=== PATIENT | female | born 1950 | race Caucasian/White ===

== ENCOUNTER → 2018-12-12 | Day surgery (SDC) | payer OTHER ==
[~2018-12-12] MED LIST: ALBUTEROL SULFATE 2.5 MG/3 ML NEBU. NEB PRN; ASPI81TA50 PO; ATOR40TA59 PO; ATROPINE 0.5 MG/5 ML DISP.SYRIN. IV PRN; GLIP5TAB10 PO; IV RINGERS SOLUTION,LACTATED 1,000 ML IV SCH; LIDOCAINE 2% PF Vial for OR 5 ML VIAL. ONE; LOPE2CAP88 PO; METF10007 PO; NALOXONE 0.4 MG/ML VIAL. IV PRN; ONDANSETRON PF 4 MG/2 ML VIAL. IV PRN; OXYB5TAB7 PO; PROPOFOL 40 ML IV ONE; diphenhydrAMINE 50 MG/ML VIAL IV PRN
[2018-12-12 13:30] VITALS: BP 107/56
--- NOTE | 2018-12-16 14:07 | PATHOLOGY ---
[facility] Accession Number: [id number] . 01 Material submitted: . cecum - CECUM POLYP . 01 Clinical history: . Colonoscopy screening . 02 Diagnosis: Colon biopsy, cecal polyp: - Hyperplastic polyp, showing mild acute and chronic inflammation. (JPM:mita; 12/16/2018) QMS/12/16/2018 . 02 Comment: There are no adenomatous changes or evidence of malignancy. . (JPM:mita; 12/16/2018) . 02 Electronically signed: . Cristian Delacruz MD, Pathologist NPI- [id number] . 01 Gross description: . Received in formalin labeled "Scotty, Lore, cecum polyp," is a single segment of denson soft tissue measuring 0.3 cm in maximum dimension. The specimen is entirely submitted in cassette A1. (TSD; 12/15/2018) TOB/TOB . 02 Pathologist provided ICD-10: K63.5 . 02 CPT . 206308 Specimen Comment: A courtesy copy of this report has been sent to Specimen Comment: [phone], . Specimen Comment: Report sent to / DR MATHEWS Performed at: 01 [facility] [address], [place] [id number] MD Gal Snow MD Phone: [phone] Performed at: 02 [facility] [place] [address], [place] [id number] MD Cristian Delacruz MD Phone: [phone]
== END ==
LOC: SURG 10:18
PROVIDERS: ATTEND Internal Medicine Gastroenterology
DX: Z12.11 Encounter for screening for malignant neoplasm of colon (principal); K63.5 Polyp of colon; K64.0 First degree hemorrhoids; K64.4 Residual hemorrhoidal skin tags; Z79.82 Long term (current) use of aspirin
CPT/HCPCS: 45380; J2704; J7120; J2001